=== PATIENT | female | born 1955 | race Caucasian/White ===

== ENCOUNTER 2017-10-18 09:06 | Emergency (ER) | payer BC ==
--- NOTE | 2017-10-18 09:20 | CPEKG ---
Heart Rate: 87 RR Interval: 690 P-R Interval: 152 QRSD Interval: 84 QT Interval: 372 QTC Interval: 448 P Alma: 65 QRS Alma: -21 T Wave Alma: 51 EKG Severity - ABNORMAL ECG - EKG Impression: SINUS RHYTHM EKG Impression: LEFT ATRIAL ABNORMALITY EKG Impression: BORDERLINE LEFT AXIS DEVIATION Electronically Signed By: Charmaine Zarate 18-Oct-2017 15:19:56
[2017-10-18 09:38] LABS: PLATELET COUNT 159 10^3/uL (150-400)
--- NOTE | 2017-10-18 09:47 | EDPHY ---
H & P Stated Complaint: CP Time Seen by Provider: 10/18/17 09:21 HPI/ROS: CHIEF COMPLAINT: Chest pain HISTORY OF PRESENT ILLNESS: 62-year-old female presents with chest pain. Onset of chest pain at 9:00 p.m. yesterday. The pain is located in the central lower chest and is constant and [id number]. The pain increases with deep inspiration. She was eventually able to get to sleep last evening despite the pain. She awoke at 2:00 a.m. with increased pain. She took ibuprofen with some relief. She was able to go back to sleep for a little while, but when she woke up the pain persisted. No associated symptoms and no change with exertion. Specifically there is no shortness of breath, dizziness, leg pain/ swelling, nausea or abdominal pain. No prior similar symptoms. She had a recent upper respiratory infection. Cardiac risk factors negative. Nonsmoker; no family history; no hypertension, diabetes or hypercholesterolemia. REVIEW OF SYSTEMS: complete 10 point ROS negative except at noted in the HPI - Personal History Current Tetanus/Diphtheria Vaccine: Unsure Current Tetanus Diphtheria and Acellular Pertussis (TDAP): Unsure - Medical/Surgical History Hx Asthma: No Hx Chronic Respiratory Disease: No Hx Diabetes: No Hx Cardiac Disease: No Hx Renal Disease: No Hx Cirrhosis: No Hx Alcoholism: No Hx HIV/AIDS: No Hx Splenectomy or Spleen Trauma: No Other PMH: denies - Social History Smoking Status: Never smoked - Physical Exam Exam: General Appearance: Alert, pleasant Eyes: Pupils equal and round, no conjunctival pallor or injection ENT, Mouth: Mucous membranes moist Neck: Normal inspection Respiratory: lower anterior left parasternal point tenderness, lungs clear to auscultation Cardiovascular: Regular rate and rhythm Gastrointestinal: Abdomen is soft and nontender Neurological: A&O, nonfocal exam Skin: Warm and dry, no rash Extremities: Nontender, pedal edema Psychiatric: Mood and affect normal Constitutional: Initial Vital Signs Temperature (C) 37 C 10/18/17 09:10 Heart Rate 105 H 10/18/17 09:10 Respiratory Rate 16 10/18/17 09:10 Blood Pressure 141/94 H 10/18/17 09:10 O2 Sat (%) 99 10/18/17 09:10 O2 Delivery Mode Room Air Allergies/Adverse Reactions: No Known Allergies Allergy (Unverified 10/18/17 09:10) Home Medications: Medication Instructions Recorded NK [No Known Home Meds] 10/18/17 Medical Decision Making - Diagnostics EKG Interpretation: EKG interpreted by me reveals normal sinus rhythm, rate 87, left atrial abnormality, no ST or T segment changes. Interpretation: Borderline EKG Imaging Results: Imaging Impressions Chest X-Ray 10/18/17 09:35 Impression: No acute pulmonary disease. Imaging: I viewed and interpreted images myself ED Course/Re-evaluation: This patient presents with atypical and prolonged chest pain, greater than 12 hr. Stat EKG reveals no evidence of ischemia or dysrhythmia. This patient presents with atypical and prolonged (greater than 12 hrs) chest pain. After careful consideration and evaluation, I find no evidence of acute coronary syndrome. The patient has no risk factors for coronary disease, normal EKG and troponin. Heart score is 1. I do not feel that additional ED testing is indicated. In addition, I feel that I can safely exclude pulmonary embolism, with normal vital signs, normal oxygen saturation and normal studies. PERC score 1 because of age; normal physical exam, no prior thromboembolism, no recent surgery, no estrogen use. In addition there is no evidence of pneumothorax, pneumonia, aortic dissection. Presentation most c/w costochondritis. Chest pain has resolved after IV Toradol. Chest pain precautions given. Will follow up with PCP. Differential Diagnosis: Differential diagnosis includes though it is not limited to pneumonia, pneumothorax, pulmonary embolism, aortic dissection, pericarditis, acute coronary syndrome. - Data Points Laboratory Results: Laboratory Results 10/18/17 09:10 10/18/17 09:34 10/18/17 10/18/17 10/18/17 09:34 09:17 09:10 WBC 7.56 10^3/uL 10^3/uL (3.80-9.50) RBC 4.99 10^6/uL 10^6/uL (4.18-5.33) Hgb 14.6 g/dL g/dL (12.6-16.3) Hct 44.0 % % (38.0-47.0) MCV 88.2 fL fL (81.5-99.8) MCH 29.3 pg pg (27.9-34.1) MCHC 33.2 g/dL g/dL (32.4-36.7) RDW 13.7 % % (11.5-15.2) Plt Count 159 10^3/uL 10^3/uL (150-400) MPV 11.8 fL H fL (8.7-11.7) Neut % (Auto) 66.7 % % (39.3-74.2) Lymph % (Auto) 21.7 % % (15.0-45.0) [place] % (Auto) 9.4 % % (4.5-13.0) Eos % (Auto) 2.0 % % (0.6-7.6) Baso % (Auto) 0.1 % L % (0.3-1.7) Nucleat RBC Rel Count 0.0 % % (0.0-0.2) Absolute Neuts (auto) 5.04 10^3/uL 10^3/uL (1.70-6.50) Absolute Lymphs (auto) 1.64 10^3/uL 10^3/uL (1.00-3.00) Absolute Monos (auto) 0.71 10^3/uL 10^3/uL (0.30-0.80) Absolute Eos (auto) 0.15 10^3/uL 10^3/uL (0.03-0.40) Absolute Basos (auto) 0.01 10^3/uL L 10^3/uL (0.02-0.10) Absolute Nucleated RBC 0.00 10^3/uL 10^3/uL (0-0.01) Immature Gran % 0.1 % % (0.0-1.1) Immature Gran # 0.01 10^3/uL 10^3/uL (0.00-0.10) D-Dimer 0.28 ug/mLFEU ug/mLFEU (0.00-0.50) Sodium 143 mEq/L mEq/L (135-145) Potassium 4.4 mEq/L mEq/L (3.5-5.2) Chloride 105 mEq/L mEq/L (97-110) Carbon Dioxide 26 mEq/l mEq/l (22-31) Anion Gap 12 mEq/L mEq/L (8-16) BUN 20 mg/dL mg/dL (7-23) Creatinine 0.9 mg/dL mg/dL (0.6-1.0) Estimated GFR > 60 Glucose 92 mg/dL mg/dL (70-100) Calcium 9.2 mg/dL mg/dL (8.5-10.4) Troponin I < 0.012 ng/mL ng/mL (0.000-0.034) Medications Given: Discontinued Medications Ketorolac Tromethamine (Toradol) 15 mg IVP EDNOW ONE Stop: 10/18/17 10:58 Last Admin: 10/18/17 11:00 Dose: 15 mg Departure - Departure Disposition: Home, Routine, Self-Care Clinical Impression: Chest pain Qualifiers: Chest pain type: other chest pain Qualified Code(s): R07.89 - Other chest pain Condition: Good Instructions: Chest Pain (ED) Additional Instructions: Ibuprofen 600 mg 3 times daily while the pain persists. Referrals: Christina Newell MD [[facility] [place] Primary Care Provider] - As per Instructions
[2017-10-18] MEDS ORDERED: KETOROLAC 15 MG/1 ML SDV IVP ONE (10:57)
[2017-10-18 12:40] VITALS: BP 135/86
== END 2017-10-18 12:38 | disposition home or self-care (01) ==
DX: R07.89 Other chest pain (principal)
CPT/HCPCS: 96374; J1885